=== PATIENT | male | born 1975 | race Two or more races ===

== ENCOUNTER 2016-11-04 09:39 | Emergency (ER) | payer MEDICAID, OTHER ==
[~2016-11-04] VITALS: Ht 182.9 cm; Wt 99.8 kg
[~2016-11-04 09:39] MED LIST: ADVAIR 250-501 EACH INH; CYCLOBENZAPRINE10 MG ORAL; IBUPROFEN600 MG ORAL; NORCO 5-325 TA1 EACH ORAL; VENTOLIN HFA18 GM INH
[2016-11-04] MEDS ORDERED: Ketorolac 60mg Inj IM ONE (10:00)
[2016-11-04] MEDS ORDERED: Morphine Sulfate 4mg/ml Inj IM ONE (10:00)
[2016-11-04 10:10] VITALS: BP 125/71
[2016-11-04] MEDS ORDERED: NORCO 5-325 TA1 EACH ORAL (11:11)
[2016-11-04] MEDS ORDERED: IBUPROFEN600 MG ORAL (11:11)
--- NOTE | 2016-11-04 11:12 | Diagnostic Imaging Report ---
Indication: Left lower pain Technique: XRAY SHOULDER MIN 3V LEFT Comparison: None Findings: There is an acute comminuted obliquely oriented fracture of the left proximal humerus involving the surgical neck. There is no dislocation. Impression: Acute comminuted obliquely oriented fracture involving the surgical neck of the left proximal humerus.
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
[2016-11-04 11:50] VITALS: BP 125/71
== END 2016-11-04 11:50 | disposition home or self-care (01) ==
LOC: EMR 10:04
DX: S42.212A Unspecified displaced fracture of surgical neck of left humerus, initial encounter for closed fracture (principal); V28.4XXA Motorcycle driver injured in noncollision transport accident in traffic accident, initial encounter; Y92.89 Other specified places as the place of occurrence of the external cause; J45.909 Unspecified asthma, uncomplicated
CPT/HCPCS: 29240; 73030; 96372; 99284; J2270

== ENCOUNTER 2018-06-25 12:13 | Emergency (ER) | payer OTHER ==
[~2018-06-25] VITALS: Ht 180.3 cm; Wt 117.5 kg
[2018-06-25] MEDS ORDERED: ADVAIR 250-501 EACH INH (12:25)
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
[2018-06-25 12:52] VITALS: BP 151/101
[2018-06-25] MEDS ORDERED: Ketorolac 30mg Inj IM ONE (13:00)
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
[2018-06-25] MEDS ORDERED: COLACE100 MG ORAL (13:09)
[2018-06-25] MEDS ORDERED: [UNRECOGNIZED DRUG - SUPPLY] MC (13:09)
[2018-06-25] MEDS ORDERED: NAPROXEN500 M1 ORAL (13:09)
[2018-06-25 13:19] VITALS: BP 151/101
--- NOTE | 2018-06-25 13:20 | NUR ---
ED Nurse Note: pt cleared to d/c per ER provider order, pt discharge instruction provided w/prescription given, pt advised to follow up with pcp or return to ed if s/s worsen or new s/s develop, pt education done via discussion and hand out, patient verbalized understanding. ID wristband removed, pt vss, ambulatory w/ steady gait, respiration even and unlabored, airway intact, pt left with all belongings.
== END 2018-06-25 13:21 | disposition home or self-care (01) ==
LOC: EMR 12:45
DX: S39.011A Strain of muscle, fascia and tendon of abdomen, initial encounter (principal); Y93.72 Activity, wrestling; Y92.89 Other specified places as the place of occurrence of the external cause; J45.909 Unspecified asthma, uncomplicated
CPT/HCPCS: 96372; 99283; J1885